=== PATIENT | male | born 1995 | race Caucasian/White ===

== ENCOUNTER 2018-04-17 23:59 | Emergency (ER) | payer OTHER ==
[~2018-04-17] VITALS: Ht 193 cm; Wt 90.7 kg
[2018-04-18] MEDS ORDERED: ADDERALL 30 MG30 MG PO (00:37)
[2018-04-18] MEDS ORDERED: IBUPROFEN 400 MG TAB PO ONE (01:00)
[2018-04-18 02:01] VITALS: BP 143/78
== END 2018-04-18 01:45 | disposition home or self-care (01) ==
LOC: FSED 23:59
DX: S80.01XA Contusion of right knee, initial encounter (principal); S76.111A Strain of right quadriceps muscle, fascia and tendon, initial encounter; W03.XXXA Other fall on same level due to collision with another person, initial encounter; Y92.008 Other place in unspecified non-institutional (private) residence as the place of occurrence of the external cause
CPT/HCPCS: 99283